=== PATIENT | female | born 1945 | race Caucasian/White ===

== ENCOUNTER → 2022-08-03 14:46 | Outpatient (BNVA) | payer MEDICARE, SELFPAY | PROVIDERS: PCP Internal Medicine; Referring Provider Nurse Practitioner Family; Visit Provider Nurse Practitioner | DX: R41.89 Other symptoms and signs involving cognitive functions and awareness (principal); S06.5X1S Traumatic subdural hemorrhage with loss of consciousness of 30 minutes or less, sequela; W19.XXXS Unspecified fall, sequela; R41.3 Other amnesia | CPT/HCPCS: 36415; 82607; 84443; 99204 ==

== ENCOUNTER 2022-09-13 12:38 | Outpatient (CLI) | payer MEDICARE, SELFPAY ==
--- NOTE | 2022-09-13 13:00 | MR_ITS ---
WS: [id number] MRI BRAIN WITHOUT CONTRAST HISTORY: Fall 3 months ago with possible brain bleed. COMPARISON: None available. TECHNIQUE: Diffusion imaging, multiplanar T1, T2 and FLAIR imaging obtained. On the diffusion-weighted images there is increased signal along the watershed distribution between t he anterior and middle cerebral arteries. Additional subtle areas of increased T1 signal in the area of a prior infarct involving the posterior RIGHT frontal lobe. No hemorrhage is identified. Symmetric increased T2 signal in the posterior parasagittal occipital lobes bilaterally. There are ad ditional scattered mild to moderate T2 and FLAIR signal hyperintensities in the subcortical white mat ter. Small lacunar infarct RIGHT caudate. Ventricles and extra-axial spaces are normal. No inferior displacement of cerebellar tonsils. The sella turcica and pituitary gland are unremarkabl e. Dural venous sinuses and enterprise of [employer] demonstrate no abnormality on this unenhanced studies. Paranasal sinuses: Clear. Mastoid air cells: Normal. Calvarium and scalp: Intact. MR/MR head wo con* [id number] IMPRESSION: 1. 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 There is additional inf arct with cortical laminar process involving the posterior RIGHT frontal lobe. 2. No hemorrhage. 3. Bilateral symmetric parasagittal occipital lobe cortical hyperintensities. Due to the distribution this is often seen with posterior reversible encephalop athy. May be related to hypertension. 4. Due to the variable findings in the distribution consider 3 month MRI brain follow-up to evaluate for interval change or progression.
== END 2022-09-13 12:39 | disposition home or self-care (01) ==
PROVIDERS: PCP Internal Medicine; Visit Provider Nurse Practitioner
DX: I63.521 Cerebral infarction due to unspecified occlusion or stenosis of right anterior cerebral artery (principal); I63.511 Cerebral infarction due to unspecified occlusion or stenosis of right middle cerebral artery; R41.89 Other symptoms and signs involving cognitive functions and awareness
CPT/HCPCS: 70551